=== PATIENT | male | born 1985 | race Caucasian/White ===

== ENCOUNTER 2020-01-25 10:42 | Outpatient (REF) | payer OTHER, SELFPAY | END 2020-01-25 10:43 | disposition home or self-care (01) | LOC: HO.HMGCLDS 10:42 | PROVIDERS: Visit Provider Internal Medicine | DX: Z20.828 Contact with and (suspected) exposure to other viral communicable diseases (principal) | CPT/HCPCS: C9803; U0003 ==

== ENCOUNTER 2020-04-15 06:21 | Outpatient (REF) | payer OTHER, SELFPAY ==
[2020-04-15 12:10] LABS: Alanine Aminotransferase 31 U/L (0-40); Albumin Level 4.6 g/dL (3.5-5.0); Alkaline Phosphatase 85 U/L (39-117); Anion Gap 11 (12-20); Aspartate Amino Transferase 22 U/L (5-37); Bilirubin Total 0.9 mg/dL (0.0-1.0); Blood Urea Nitrogen 16 mg/dL (9-16); Calcium 8.9 mg/dL (8.4-10.2); Carbon Dioxide 32 mmol/L (22-29); Chloride 100 mmol/L (96-108); Cholesterol 177 mg/dL; Estimated Glomerular Filt Rate > 60; Glucose Fasting 96 mg/dL (60-99); HDL Cholesterol 43 mg/dL; LDL Cholesterol Calculated 112 mg/dl; Potassium 3.3 mmol/L (3.3-5.1); Sodium 140 mmol/L (135-145); Total Protein 6.6 g/dL (6.5-8.0); Triglycerides 114 mg/dL
[2020-04-15 12:32] LABS: TSH reflex Free T4 3.47 uIU/mL (0.32-4.0)
== END 2020-04-15 06:22 | disposition home or self-care (01) ==
LOC: HO.HMGCLDS 06:21
PROVIDERS: PCP Nurse Practitioner Family; Visit Provider Nurse Practitioner Family
DX: Z00.00 Encounter for general adult medical examination without abnormal findings (principal)
CPT/HCPCS: 36415; 80053; 80061; 84443

== ENCOUNTER 2020-09-28 10:16 | Emergency (ER) | payer OTHER, SELFPAY ==
[2020-09-28 10:20] VITALS: BP 117/75; PULSE 66; RESP 16; TEMP 36.9; O2SAT 97; BMI 28.5
--- NOTE | 2020-09-28 11:50 | ED.SKABFB ---
HPI - Skin/Abscess/Foreign Bdy General Chief complaint: Wound/Laceration Stated complaint: General Medical Time Seen by Provider: 09/28/20 10:32 Source: patient Mode of arrival: ambulatory Limitations: no limitations History of Present Illness HPI narrative: 35-year-old male presenting to the ED with complaints of a Lump to rectum that started approximately 3 days ago and painful but not bleeding. Denies any trauma to the area, falls, recent rectal intercourse, constipation or straining, abdominal pain or any other symptoms complaints or concerns at this time Related Data Previous Rx's Medication Instructions Recorded betamethasone dipropionate 0.05 % 1 appl TOPICAL DAILY PRN 30 Days 08/01/20 topical cream #45 g famotidine 20 mg tablet 20 mg PO DAILY #20 tab 08/01/20 dicyclomine 10 mg capsule 10 mg PO BID PRN #60 cap 08/08/20 omeprazole 20 mg capsule,delayed 20 mg PO DAILY #30 cap 09/26/20 release acetaminophen [Tylenol Extra 1,000 mg PO QID PRN #14 tab 09/28/20 Strength] docusate sodium [Colace] 100 mg PO BID PRN #20 cap 09/28/20 hydrocortisone acetate [Anusol-HC] 25 mg [place] BEDTIME #12 ea 09/28/20 ibuprofen 800 mg PO Q8H PRN #14 tab 09/28/20 lidocaine 1 appl TOPICAL BID PRN #30 g 09/28/20 sennosides [Senna Laxative] 8.6 mg PO BID PRN #20 tab 09/28/20 Allergies Allergy/AdvReac Type Severity Reaction Status Date / Time No Known Allergies Allergy Verified 09/28/20 10:20 [No Known Allergies*] Review of Systems Review of Systems: Constitutional : No Weight loss, No Fever, No Chills, No Night Sweats, No Fatigue, NoMalaise ENT/Mouth: No ear pain, No sore throat, No Difficulty swallowing Cardiovascular : No Chest Pain, No SOB, No Dyspnea on Exertion, No Orthopnea, NoEdema, No Palpitations Respiratory : No Cough, No Sputum, No Wheezing, No Dyspnea Gastrointestinal : No Nausea, No Vomiting, No Diarrhea, + abdominal Pain, No Hematochezia, No Melena Genitourinary : No testicular pain, No irregular bleeding, No Dysuria, No Urinary Frequency, No Hematuria,No Urinary Incontinence, No Urgency, No Flank Pain : Positive lump to rectum Musculoskeletal : No joint pain, No Myalgias, No Joint Swelling Skin : No Skin Lesions, No rash Neuro : No Weakness, No Numbness, No Paresthesias, No Loss of Consciousness, NoDizziness, No Headache Psych : No Social Issues, Heme/Lymph: No Bruising, No Bleeding,No Lymphadenopathy Endocrine : No Polyuria, No Polydipsia, No Temperature Intolerance PATIENT DENIES ANY THOUGHTS OF STDS Yes all other systems are reviewed and are negative [facility] Past Medical History Attestation statement: The following information was validated with the patient. Surgical History No pertinent past surgical history Family History Family History Father History of heart attack Heavy smoker CVD (cardiovascular disease) Mother Anemia Social History Social History Alcohol intake: current Alcohol intake frequency: holidays/special occasions only Advance Directives: Yes Advance Directives Information Provided: Yes Advance Directives on File: No Physical Exam Vital Signs: Vital Signs: Last Vital Signs Temp 98.5 F 09/28/20 10:20 Pulse 66 09/28/20 10:20 Resp 16 09/28/20 10:20 BP 117/75 09/28/20 10:20 Pulse Ox 97 09/28/20 10:20 Body Mass Index 28.5 vital signs have been reviewed as normal and appeared to be correct. Blood pressure normal. Heart rate normal. Respiration rate normal. Temperature normal. Oxygen saturation normal. Appearance: Alert. Oriented X3. No acute distress. Head: Normal external exam. Normocephalic. Atraumatic. Eyes: PERRLA. EOMI. Conjunctiva and sclera normal. Eyelids normal. ENT: Pharynx normal. Uvula midline. Moist mucous membranes. Neck: Normal inspection. Neck supple. FROM. No adenopathy. No meningeal signs. CVS: Normal heart rate and rhythm. Heart sound normal. Pulses normal throughout. No murmurs/rales/gallops. Respiratory: No respiratory distress. Painless inspiration. Breath sounds normal. No wheezes/rales/rhonchi noted. Chest nontender. No accessory muscle usage noted or decreased air movement noted. Abdomen: Soft and nontender. Bowel sounds normal in all 4 quadrants. No distention noted. No organomegaly noted. No visible injury noted. Back: Full range of motion noted. No rashes/lesion/induration/fluctuance or signs of infection noted. : Positive left external thrombosed hemorrhoid no active bleeding is noted. Not consistent with strangulated hemorrhoids. No signs of abscess noted. Skin: Skin warm and dry. Normal skin color. Normal skin turgor. No rashes/lesions/lacerations noted. Extremities: Extremities exhibit normal range of motion. Extremities nontender. Neuro: Oriented X 3. No motor deficit. No sensory deficit. Reflexes normal. Normal steady gait. No focal neuro deficits noted. Course Course Course Narrative: pt is s/p elliptical I&D of thrombosed hemorrhoid. He tolerated procedure well. No complications were noted. Not consistent with incarcerated/strangulated hemorrhoid. Will DC home with topical steroids stool softeners and instructions for high fiber diet and to follow up with with general surgery for further evaluation treatment to return if any new or worsening symptoms. Patient understands agrees with this plan. Procedures Abscess I/D Site: other (Thrombosed hemorrhoid) Side (if applicable): left Local Anesthetic: lidocaine 1% Amount of anesthesia used (mL): 2 Technique: incised with blade (Elliptical cut) Sent for culture/gram staining?: No Irrigation: Yes Packing used?: none Complications: other (No complications) MDM - Skin/Abscess/Foreign Bdy Medical Records Attestation: I reviewed the patient's medical records. Discharge Plan Discharge Clinical Impression: External hemorrhoid, thrombosed Patient Disposition: Home, Self-Care Instructions: Hemorrhoids (ED), Thrombosed Hemorrhoid (ED), Hemorrhoidectomy (DC) Prescriptions: New sennosides [Senna Laxative] 8.6 mg tablet 8.6 mg PO BID PRN (Reason: constipation/hemorrhoids) Qty: 20 RF: 0 docusate sodium [Colace] 100 mg capsule 100 mg PO BID PRN (Reason: Constipation) Qty: 20 RF: 0 hydrocortisone acetate [Anusol-HC] 25 mg suppository 25 mg [place] BEDTIME Qty: 12 RF: 0 lidocaine 5 % ointment 1 appl topical BID PRN (Reason: pain) Qty: 30 RF: 0 ibuprofen 800 mg tablet 800 mg PO Q8H PRN (Reason: pain) Qty: 14 RF: 0 acetaminophen [Tylenol Extra Strength] 500 mg tablet 1,000 mg PO QID PRN (Reason: fever or pain) Qty: 14 RF: 0 No Action betamethasone dipropionate 0.05 % cream 1 appl topical DAILY PRN (Reason: skin irritation) 30 Days Qty: 45 RF: 0 famotidine 20 mg tablet 20 mg PO DAILY Qty: 20 RF: 0 dicyclomine 10 mg capsule 10 mg PO BID PRN (Reason: for muscle spasm) Qty: 60 RF: 2 omeprazole 20 mg capsule,delayed release(DR/EC) 20 mg PO DAILY Qty: 30 RF: 1 Referrals: Julio Barajas MD [Physician] - 2 days (Hemorrhoids) Stand Alone Forms: Work/School Release Print Language: Botswanan
[2020-09-28] MEDS: Lidocaine HCl 1 % MPF 5 ML VIAL SUBCUT (12:03)
== END 2020-09-28 12:27 | disposition home or self-care (01) ==
PROVIDERS: Emergency Provider Emergency Medicine; PCP Nurse Practitioner Family
DX: K64.5 Perianal venous thrombosis (principal)
CPT/HCPCS: 46083; 99284

== ENCOUNTER → 2020-10-03 14:54 | Outpatient (BNVA) | payer OTHER, SELFPAY | PROVIDERS: PCP Nurse Practitioner Family; Referring Provider Nurse Practitioner Family; Visit Provider Surgery | DX: K64.5 Perianal venous thrombosis (principal) | CPT/HCPCS: 99202 ==

== ENCOUNTER 2020-11-25 09:59 | Outpatient (REF) | payer OTHER, SELFPAY | END 2020-11-25 10:00 | disposition home or self-care (01) | LOC: HO.HMGCLDS 09:59 | PROVIDERS: PCP Nurse Practitioner Family; Visit Provider Internal Medicine | DX: Z20.822 Contact with and (suspected) exposure to COVID-19 (principal) | CPT/HCPCS: C9803; U0003; U0005 ==

== ENCOUNTER 2020-12-16 06:55 | Outpatient (REF) | payer OTHER, SELFPAY | END 2020-12-16 06:56 | disposition home or self-care (01) | LOC: HO.HMGCLDS 06:55 | PROVIDERS: PCP Nurse Practitioner Family; Visit Provider Internal Medicine | DX: Z20.822 Contact with and (suspected) exposure to COVID-19 (principal) | CPT/HCPCS: C9803; U0003; U0005 ==

== ENCOUNTER 2021-01-31 09:41 | Outpatient (REF) | payer OTHER, SELFPAY ==
--- NOTE | ~2021-01-31 | XR_ITS ---
EXAMINATION: XR SINUSES CLINICAL INFORMATION: Acute sinusitis COMPARISON: None TECHNIQUE: 4 views of the paranasal sinuses FINDINGS: Paranasal sinuses appear clear without air-fluid levels. No fractures are identified. No radiodense foreign bodies. XR/XR sinus min 3V IMPRESSION: Unremarkable examination.
== END 2021-01-31 09:42 | disposition home or self-care (01) ==
LOC: HO.HMGCX 09:41
PROVIDERS: PCP Nurse Practitioner Family; Visit Provider Physician Assistant Medical
DX: J01.90 Acute sinusitis, unspecified (principal)
CPT/HCPCS: 70220

== ENCOUNTER 2021-02-25 06:54 | Outpatient (REF) | payer OTHER, SELFPAY | END 2021-02-25 06:55 | disposition home or self-care (01) | LOC: HO.HMGCLDS 06:54 | PROVIDERS: Visit Provider Internal Medicine | DX: Z20.822 Contact with and (suspected) exposure to COVID-19 (principal) | CPT/HCPCS: C9803; U0003; U0005 ==

== ENCOUNTER 2021-03-26 09:29 | Outpatient (REF) | payer OTHER, SELFPAY ==
--- NOTE | ~2021-03-26 | XR_ITS ---
EXAMINATION: XR RIBS, RIGHT CLINICAL INFORMATION: Contusion. COMPARISON: None TECHNIQUE: 3 views of the right ribs were obtained. Chest x-ray one view FINDINGS: Lungs are clear. No consolidation, pneumothorax, or pleural effusion. The cardiomediastinal silhouette and pulmonary vasculature are normal. Osseous structures are unremarkable. Ribs are intact. No fractures are identified. XR/XR ribs RT min 3V w CXR1V IMPRESSION: Unremarkable chest examination. There is no visible right rib fracture or bony abnormality.
== END 2021-03-26 09:30 | disposition home or self-care (01) ==
LOC: HO.HMGCX 09:29
PROVIDERS: PCP Nurse Practitioner Family; Visit Provider Internal Medicine
DX: S20.211D Contusion of right front wall of thorax, subsequent encounter (principal)
CPT/HCPCS: 71101

== ENCOUNTER 2021-03-31 08:54 | Outpatient (REF) | payer OTHER, SELFPAY ==
--- NOTE | ~2021-03-31 | CT_ITS ---
EXAMINATION: CT ABDOMEN AND PELVIS WITHOUT CONTRAST CLINICAL INFORMATION: Contusion of the abdominal wall. COMPARISON: CT abdomen and pelvis 06/09/2018. TECHNIQUE: Multidetector volumetric imaging was performed from the superior aspect of the liver through the pubic symphysis. Sagittal and coronal reformatted images were obtained on the technologist's workstation. This CT examination was performed using dose optimization techniques as appropriate, variously including the following: *Automated exposure control *Adjustment of mA and/or kV according to patient size (this includes techniques or standardized protocols for targeted exams where dose is matched to indication/reason for exam; i.e. extremities or head) *Use of iterative reconstruction technique DLP: 330 mGy-cm FINDINGS: LUNG BASES: The visualized lung bases are unremarkable. LIVER, GALLBLADDER, AND BILIARY TREE: The liver is normal in size, shape, and attenuation. No focal hepatic lesion or biliary ductal dilatation is present. The gallbladder is unremarkable with no evidence of radiopaque gallstones, gallbladder wall thickening, or obvious pericholecystic inflammatory changes. PANCREAS: Unremarkable. SPLEEN: Unremarkable. ADRENAL GLANDS: Unremarkable. KIDNEYS AND URETERS: There is 3 mm and 2 mm radiopaque nonobstructing calculi upper pole right kidney. No additional calculi seen in either kidneys. There is no caliectasis or hydronephrosis. Both kidneys are normal size and contour. No perinephric stranding seen. BLADDER: Unremarkable. GASTROINTESTINAL TRACT: There is moderate stool seen in the right colon. The small bowel loops are normal caliber. The stomach is nondistended. No free air or free fluid seen. ABDOMINAL WALL: No significant hernia is appreciated. LYMPH NODES: There is a 1.9 x 1.3 cm lymph node in the right mesentery VASCULAR: Unremarkable. PELVIC VISCERA: Unremarkable. OSSEOUS STRUCTURES: Unremarkable. CT/CT abdomen pelvis wo con IMPRESSION: No acute intra-abdominal process seen. Nonobstructive radiopaque calculi upper pole right kidney. Mild constipation Fleischner guidelines were followed.
[2021-03-31 11:21] LABS: Hematocrit 47.2 % (42.0-52.0); Hemoglobin 16.1 g/dl (14.0-18.0); Mean Corpuscular HGB Conc 34.1 g/dl (31.0-36.0); Mean Corpuscular Hemoglobin 29.8 pg (27.0-33.0); Mean Corpuscular Volume 87.4 fL (80.0-98.0); Mean Platelet Volume 9.4 fL (9.4-12.4); Platelet Count 131 X10*3/uL (160-400); Red Cell Distribution Width 12.5 % (11.0-16.0)
[2021-03-31 11:47] LABS: Alanine Aminotransferase 20 U/L (0-40); Albumin Level 4.4 g/dL (3.5-5.0); Alkaline Phosphatase 70 U/L (39-117); Anion Gap 12 (12-20); Aspartate Amino Transferase 16 U/L (5-37); Bilirubin Direct 0.3 mg/dL (0.0-0.5); Bilirubin Total 0.6 mg/dL (0.0-1.0); Blood Urea Nitrogen 16 mg/dL (9-16); Calcium 9.6 mg/dL (8.4-10.2); Carbon Dioxide 32 mmol/L (22-29); Chloride 106 mmol/L (96-108); Estimated Glomerular Filt Rate > 60; Glucose Random 98 mg/dL (60-115); Potassium 3.5 mmol/L (3.3-5.1); Sodium 146 mmol/L (135-145); Total Protein 6.8 g/dL (6.5-8.0)
[2021-03-31 11:58] LABS: Erythrocyte Sedimentation Rate 2 MM/HR (0-15)
== END 2021-03-31 08:55 | disposition home or self-care (01) ==
LOC: HO.HMGCLDS 08:54
PROVIDERS: PCP Nurse Practitioner Family; Visit Provider Internal Medicine
DX: S30.1XXA Contusion of abdominal wall, initial encounter (principal)
CPT/HCPCS: 36415; 74176; 80048; 80076; 85027; 85652

== ENCOUNTER 2022-09-10 11:51 | Outpatient (REF) | payer OTHER, SELFPAY ==
[2022-09-10 13:53] LABS: MANUAL DIFF FLAG NO
[2022-09-10 13:57] LABS: Appearance Urine Clear; Color Urine Yellow; Glucose Urine UA Negative (Negative); Leukocyte Esterase Urine Negative (Negative); Nitrite Urine Negative (Negative); Specific Gravity - Urine <= 1.005 (1.005-1.025); Urine Blood Negative (Negative); Urine Ketones Negative (Negative); Urine Protein Negative (Neg-Trace)
[2022-09-10 14:08] LABS: Basophils Percent Auto 0.7 % (0-2); Eosinophils Absolute Auto 0.1 X10*3/uL (0.0-0.4); Eosinophils Percent Auto 1.2 % (0-4); Hematocrit 45.3 % (42.0-52.0); Hemoglobin 15.5 g/dl (14.0-18.0); Imm Gran Abs Auto 0.19 X10*3/uL (0.00-0.03); Imm Gran Pct Auto 3.3 % (0.0-0.4); Lymphocytes Absolute Auto 2.3 X10*3/uL (1.2-4.9); Mean Corpuscular HGB Conc 34.2 g/dl (31.0-36.0); Mean Corpuscular Hemoglobin 29.1 pg (27.0-33.0); Mean Platelet Volume 9.6 fL (9.4-12.4); Monocytes Absolute Auto 0.5 X10*3/uL (0.1-1.2); Monocytes Percent Auto 8.7 % (2-11); Neutrophils Absolute Auto 2.7 x10*3/uL (2.0-8.3); Neutrophils Percent Auto 46.1 % (45-73); Platelet Count 164 X10*3/uL (160-400); Red Blood Count 5.33 X10*6/uL (4.60-5.80); White Blood Count 5.8 X10*3/uL (4.8-10.8)
[2022-09-10 14:33] LABS: Alanine Aminotransferase 19 U/L (0-40); Albumin Level 4.3 g/dL (3.5-5.0); Alkaline Phosphatase 60 U/L (39-117); Anion Gap 12 (12-20); Aspartate Amino Transferase 17 U/L (5-37); Blood Urea Nitrogen 15 mg/dL (9-16); Calcium 9.6 mg/dL (8.4-10.2); Carbon Dioxide 31 mmol/L (22-29); Chloride 101 mmol/L (96-108); Cholesterol 166 mg/dL; Estimated Glomerular Filt Rate > 60; Glucose Fasting 94 mg/dL (60-99); HDL Cholesterol 45 mg/dL; LDL Cholesterol Calculated 105 mg/dl; Potassium 3.8 mmol/L (3.3-5.1); Sodium 140 mmol/L (135-145); Total Protein 6.7 g/dL (6.5-8.0); Triglycerides 83 mg/dL
[2022-09-10 14:50] LABS: TSH reflex Free T4 0.93 uIU/mL (0.32-4.0)
[2022-09-10 17:27] LABS: CT PCR NOT DETECTED (Not Detect.); NG PCR NOT DETECTED (Not Detect.)
[2022-09-11 03:33] LABS: Syphilis Screen Nonreactive (Nonreactive)
[2022-09-11 03:47] LABS: HBc Num1 0.13 S/CO (0.00-0.79); HBsAGNum1 0.37 S/CO (0.00-0.99); HIV AB/AG Nonreactive (Nonreactive); HIV Num 1 0.09 S/CO (0.00-0.99); Hepatitis B Core Antibody Nonreactive (Nonreactive); Hepatitis B Surface Antigen Negative (Negative); ~Hepatitis A Antibody IgM Nonreactive (Nonreactive); ~Hepatitis B Surface Antibody REACTIVE (Nonreactive); ~Hepatitis C Antibody Nonreactive (Nonreactive)
== END 2022-09-10 11:52 | disposition home or self-care (01) ==
LOC: HO.HMGCLDS 11:51
PROVIDERS: PCP Nurse Practitioner Family; Visit Provider Nurse Practitioner Family
DX: Z00.00 Encounter for general adult medical examination without abnormal findings (principal); Z11.3 Encounter for screening for infections with a predominantly sexual mode of transmission; Z11.4 Encounter for screening for human immunodeficiency virus [HIV]
CPT/HCPCS: 0353U; 80053; 80061; 81003; 84443; 85025; 86704; 86706; 86709; 86780; 86803; 87340; 87389

== ENCOUNTER 2023-06-24 11:28 | Outpatient (AMB) | payer OTHER, SELFPAY ==
[2023-06-24 11:31] VITALS: BP 142/80; PULSE 67; TEMP 36.3; O2SAT 99; BMI 27.3
--- NOTE | 2023-06-24 11:31 | MHC.OFFWIV ---
Intake Vital Signs 06/24/23 11:31 Height 5 ft 11 in Weight 196 lb BMI 27.3 BP 142/80 H Blood Pressure Location Lt brachial Position Sitting Pulse 67 Pulse Source Pulse Oximeter Temp 97.4 F Temp Source Temporal Artery Scan Pulse Oximetry (%) 99 Oxygen Delivery Method Room Air Intake Visit Reasons: EP RT side rib/chest/back pain (lobby) Intake Note: pt is here today for rt side rib chest and back pain started wednesday Patient Tobacco Use Status: Never used Tobacco Allergies No Known Allergies [No Known Allergies*] Allergy (Verified 06/24/23 11:36) Do you need a note to return to daycare/school/sports/work: No HPI HPI Comments History of Present Illness Details 37 y/o male patient who presents to walk in clinic with c/o right sided chest wall pain, radiating to the back. Pt was working in his house yesterday, when fell and landed on hard surface. Reports muscle tighness, but denies CP, SOB or Wheezing. PFSH Surgical History History of ear surgery Family History Father History of heart attack Heavy smoker CVD (cardiovascular disease) Mother Anemia Social History Housing: Other (mobile Home ) Alcohol intake: current Alcohol intake frequency: holidays/special occasions only Patient Tobacco Use Status: Never used Tobacco e-Cigarette/Vaping Use: Never Used Second Hand Smoke Exposure: No service: No Current occupational status: employed Current occupation: [employer] Current occupational exposures/hazards: Yes Cognitive needs: No Hearing needs: No Vision needs: No Review of Systems Const All systems reviewed & are unremarkable except as noted in HPI and below Physical Exam Vital Signs: Last Vital Signs Temp 97.4 F 06/24/23 11:31 Pulse 67 06/24/23 11:31 BP 142/80 H 06/24/23 11:31 Pulse Ox 99 06/24/23 11:31 Oxygen Delivery Method Room Air 06/24/23 11:31 BMI result Body Mass Index 27.3 Const General: no acute distress; No comfortable Orientation/consciousness: patient oriented x3 Chest Chest palpation & inspection: normal inspection of the chest, no crepitus, no masses and tenderness rib (right side) Resp Effort & Inspection: normal respiratory effort and able to speak in complete sentences Auscultation: clear to auscultation bilaterally, no crackles, no rales, no rhonchi and no wheezes Cardio Rate: regular rate Neuro General: patient oriented x3 Assessment & Plan Assessment & Plan (1) Contusion, chest wall: Code(s): S20.219A - Contusion of unspecified front wall of thorax, initial encounter Qualifiers: Encounter type: initial encounter Laterality: right Qualified Code(s): S20.211A - Contusion of right front wall of thorax, initial encounter Plan: -Xray chest - Take medications as directed Orders: Orders XR chest 2V Today S20.219A - Contusion of unspecified front wall of thorax, initial encounter Medications: New lidocaine 4% (AsperFlex (lidocaine)) 1 patch topical DAILY PRN 30 ea 0RF pain S20.211A - Contusion of right front wall of thorax, initial encounter metaxalone 800 mg PO TID 20 tabs 0RF S20.211A - Contusion of right front wall of thorax, initial encounter ibuprofen 600 mg PO Q6H PRN 60 tabs 0RF pain S20.211A - Contusion of right front wall of thorax, initial encounter Coding Level of Care Code Est Pt Level 3 (07945) Diagnoses Contusion of right chest wall, initial encounter S20.211A Encounter type: initial encounter Laterality: right Time Spent (min) 15
== END 2023-06-24 13:56 | disposition home or self-care (01) ==
PROVIDERS: PCP Nurse Practitioner Family; Visit Provider Nurse Practitioner Family
DX: S20.211A Contusion of right front wall of thorax, initial encounter (principal)
CPT/HCPCS: 99213

== ENCOUNTER 2023-06-24 12:09 | Outpatient (REF) | payer OTHER, SELFPAY ==
--- NOTE | ~2023-06-24 | XR_ITS ---
EXAMINATION: XR CHEST CLINICAL INFORMATION: Right-sided chest pain after fall. COMPARISON: 03/09/2018 TECHNIQUE: 2 views of the chest were obtained. FINDINGS: The lungs are well expanded. No focal consolidation. No pleural effusion. Cardiac silhouette is within normal limits. XR/XR chest 2V IMPRESSION: No acute abnormality.
== END 2023-06-24 12:10 | disposition home or self-care (01) ==
LOC: HO.HMGCX 12:09
PROVIDERS: PCP Nurse Practitioner Family; Visit Provider Nurse Practitioner Family
DX: S20.219A Contusion of unspecified front wall of thorax, initial encounter (principal)
CPT/HCPCS: 71046

== ENCOUNTER 2023-12-29 14:49 | Outpatient (AMB) | payer OTHER, SELFPAY ==
[2023-12-29 14:53] VITALS: BP 142/80; PULSE 73; O2SAT 98; BMI 25.5
--- NOTE | 2023-12-29 14:53 | A.OFFPC_ITS ---
Vital Signs 12/29/23 14:53 12/29/23 15:31 Height 5 ft 11 in Weight 183 lb BMI 25.5 BP 142/80 H 132/80 Blood Pressure Location Rt brachial Rt brachial Position Sitting Sitting Pulse 73 Pulse Source Pulse Oximeter Pulse Oximetry (%) 98 Oxygen Delivery Method Room Air Intake Visit Reasons: Annual PE Intake Note: pt is here for annual exam Desktop Administrator Required: No Accompanied by: Self / Same As Patient Allergies No Known Allergies [No Known Allergies*] Allergy (Verified 12/29/23 15:59) Medication List - Last Reconciled 12/29/23 by KISHOR Montalvo dicyclomine 10 mg PO BID PRN 90 days omeprazole 20 mg PO DAILY Tobacco use date assessed: 12/29/23 Dental Screening Dental Screen Date: 12/29/23 Did you have a dental visit in the last 12 months?: Yes Did you have a dental problem in the last 6 months where you did not have access to dental care?: No Was dental information given to patient?: Patient has dentist HPI Annual PE HPI Details Pt is here for a PE. Will order labs. Pt c/o constipation. He has tried miralax which did not help. Recommended increased fiber and water intake. Pt reports that his maternal grandfather at a young age from pancreatic cancer. Will order CA 19-9 and MRI. [facility] Surgical History History of ear surgery Family History Father History of heart attack Heavy smoker CVD (cardiovascular disease) Mother Anemia Social History Housing: Other (mobile Home ) Alcohol intake: current Alcohol intake frequency: holidays/special occasions only Patient Tobacco Use Status: Never used Tobacco e-Cigarette/Vaping Use: Never Used Second Hand Smoke Exposure: No service: No Current occupational status: employed Current occupation: [employer] Current occupational exposures/hazards: Yes Cognitive needs: No Hearing needs: No Vision needs: No Questionnaire PHQ-9 Over the last 2 weeks, how often have you been bothered by any of the following problems? 1. Little interest or pleasure in doing things: not at all 2. Feeling down, depressed, or hopeless: not at all 3. Trouble falling or staying asleep, or sleeping too much: not at all 4. Feeling tired or having little energy: several days 5. Poor appetite or overeating: not at all 6. Feeling bad about yourself - or that you are a failure or have let yourself or your family down: not at all 7. Trouble concentrating on things, such as reading the newspaper or watching television: several days 8. Moving or speaking so slowly that other people could have noticed. Or the opposite - being so fidgety or restless that you have been moving around a lot more than usual: not at all 9. Thoughts that you would be better off or of hurting yourself in some way: not at all Total score: 2 Depression Screening Interpretation: Negative Depression Screening Done: Yes 20204 - PHQ-9 Billing: Yes Source: Developed by Drs. Flako Francois, Kirsten Ramirez, Jay Kelly and colleagues, with an educational lboito from [employer]. Thrive Questionnaire Date Thrive assessed: 12/29/23 I am a: Patient What is your living situation today?: I have a steady place to live Within the past 12 months, did the food you bought not last and you didn't have the money to get more?: Never true Within the past 12 months, did you worry whether your food would run out before you got money to buy more?: Never true Do you have trouble paying for medicines?: No Do you have trouble getting transportation to medical appointments?: No Do you have trouble paying your heating and electricity bill?: No Do you have trouble taking care of your child, family member or friend?: No Do you have trouble with day-to-day activities such as bathing, preparing meals, shopping, managing finances, etc.?: No Are you interested in more education?: No Please select the resources that you would like help with: None Currently or been in a relationship where the following occur: No concerns reported THRIVE Score: 0 AUDIT C Alcohol Use Questionnaire (AUDIT-C) 1. How often do you have a drink containing alcohol?: Never 3. How often do you have six or more drinks on one occasion?: Never Total Score: 0 Score Reviewed/Action Taken: Yes ARPAN-7 AMB Questionnaire ARPAN-7 Date ARPAN - 7 assessed: 12/29/23 Feeling nervous, anxious, or on edge: 1 = Several days Not being able to stop or control worryin = Not at all Worrying too much about different things: 0 = Not at all Trouble relaxin = Several days Being so restless that it is hard to sit still: 1 = Several days Becoming easily annoyed or irritable: 1 = Several days Feeling afraid as if something awful might happen: 0 = Not at all Total RAPAN-7 score (0-4 normal; 5-9 mild; 10-14 moderate; 15-21 severe): 4 Source: Developed by Drs. Flako Francois, Kirsten Ramirez, Jay Kelly and colleagues, with an educational lobito from [employer]. ARPAN-7 Assessment Billing ARPAN-7 Assessment Tool: ARPAN-7 Assessment 84267 Review of Systems Const Denies chills and Denies fever(s) Eyes Denies blurry vision ENT Denies vertigo, Denies dizziness and Denies sore throat Card Denies chest pain at rest, Denies chest pain with activity, Denies diaphoresis, Denies dyspnea and Denies dyspnea on exertion Resp Denies cough, Denies dyspnea, Denies dyspnea on exertion and Denies wheezing GI Denies abdominal pain, Denies melena, Denies hematochezia, Reports constipation, Denies diarrhea and Denies loose stools Denies hematuria Musc Denies numbness and Denies tingling Skin/Breast Denies lesions Neuro Denies vertigo, Denies dizziness, Denies numbness and Denies tingling Psych Denies anxiety, Denies depression, Denies homicidal ideation, Denies suicidal ideation and Denies other (substance abuse) Aller/Immun Denies wheezing Physical exam (Primary Care) Vital Signs: Last Vital Signs Pulse 73 12/29/23 14:53 BP 142/80 H 12/29/23 14:53 Pulse Ox 98 12/29/23 14:53 Oxygen Delivery Method Room Air 12/29/23 14:53 BMI result Body Mass Index 25.5 Tobacco/Smoking Status: Tobacco use Status Tobacco use date assessed 12/29/23 12/29/23 14:54 Patient Tobacco Use Status Never used Tobacco 12/29/23 14:54 e-Cigarette/Vaping Use Never Used 12/29/23 14:54 PHQ-9: PHQ-9 Score PHQ-9: Total score 2 12/29/23 15:10 Depression Screening Interpretation: Negative Thrive Assessment: Date of Thrive Assessment Date Thrive assessed 12/29/23 12/29/23 14:54 Currently or been in a relationship where the following occur: No concerns reported Const General: cooperative Nutritional Appearance: well nourished Orientation/consciousness: patient oriented x3 HENMT Other: cerumen noted bilat Head: Yes normal to inspection, Yes normocephalic and Yes atraumatic Eyes General: appearance normal, both eyes and all related structures Alignment and Position: alignment normal and position normal Neck Neck: Yes normal visual inspection, Yes no lymphadenopathy and Yes supple Resp Effort & Inspection: normal respiratory effort Auscultation: clear to auscultation bilaterally Cardio Rate: regular rate Rhythm: regular rhythm Heart sounds: S1 normal heart sound present, S2 normal heart sound present and no murmurs GI Palpation (GI): Soft to palpation and nontender Auscultation: normal bowel sounds Male General Exam: Yes normal external exam Penis: normal penis Scrotum: scrotum normal, testes descended bilaterally and no inguinal hernias Testes: no testicular mass Skin Rashes: no rashes Neuro General: patient oriented x3, moves all extremities, no focal motor deficits and deep tendon reflexes 2+ bilaterally Romberg Test: Negative Psych Appearance: grossly normal Mental Status: mental status grossly normal Speech and movement: Normal speech and movement present Affect: normal affect Attitude: cooperative Thought process: Normal thought process present Thought content: Normal thought content present Insight: Good insight present (Psych) Judgement: Good judgement present (Psych) Coding Level of Care Code Est Pt Prev Care 40-64y(13956) Diagnoses Physical exam Z00.00 Family history of pancreatic cancer Z80.0 Additional Codes ARPAN-7 Assessment Billing - ARPAN-7 Assessment Tool: ARPAN-7 Assessment [id number] ([id number]) Assessment & Plan Assessment & Plan (1) Physical exam: Code(s): Z00.00 - Encounter for general adult medical examination without abnormal findings Category: Medical Plan: Labs ordered (2) Family history of pancreatic cancer: Code(s): Z80.0 - Family history of malignant neoplasm of digestive organs Category: Medical Plan The patient agreed to the use of a medical lab specialist for this encounter. Scribed for ARELY Valente-DEANA by Justyna Valladares, medical lab specialist, on 12/29/2023 at 15:10 EST. Orders: Orders Comprehensive [place]. Panel Fast Today Z00.00 - Encounter for general adult medical examination without abnormal findings TSH reflex Free T4 Today Z00.00 - Encounter for general adult medical examination without abnormal findings UA CC w/rflx Micro + Cult Today Z00.00 - Encounter for general adult medical examination without abnormal findings Complete Blood Count Auto Diff Today Z00.00 - Encounter for general adult medical examination without abnormal findings Lipid Panel Today Z00.00 - Encounter for general adult medical examination without abnormal findings Carbohydrate Antigen 19-9 Today Z80.0 - Family history of malignant neoplasm of digestive organs MR abdomen wo con Today Z80.0 - Family history of malignant neoplasm of digestive organs
[2023-12-29 15:31] VITALS: BP 132/80
== END 2023-12-29 15:38 | disposition home or self-care (01) ==
PROVIDERS: PCP Nurse Practitioner Family; Visit Provider Nurse Practitioner Family
DX: Z00.00 Encounter for general adult medical examination without abnormal findings (principal); Z80.0 Family history of malignant neoplasm of digestive organs

== ENCOUNTER → 2023-12-29 14:49 | Outpatient (BNVA) | payer OTHER, SELFPAY | PROVIDERS: PCP Nurse Practitioner Family; Visit Provider Nurse Practitioner Family | DX: Z00.00 Encounter for general adult medical examination without abnormal findings (principal); Z80.0 Family history of malignant neoplasm of digestive organs | CPT/HCPCS: 96127; 99396 ==

== ENCOUNTER 2023-12-30 07:47 | Outpatient (REF) | payer OTHER, SELFPAY ==
[2023-12-30 10:13] LABS: MANUAL DIFF FLAG NO
[2023-12-30 10:21] LABS: Basophils Percent Auto 0.4 % (0-2); Eosinophils Absolute Auto 0.1 X10*3/uL (0.0-0.4); Eosinophils Percent Auto 1.6 % (0-4); Hematocrit 43.2 % (42.0-52.0); Hemoglobin 14.8 g/dl (14.0-18.0); Imm Gran Abs Auto 0.02 X10*3/uL (0.00-0.03); Imm Gran Pct Auto 0.4 % (0.0-0.4); Lymphocytes Absolute Auto 1.3 X10*3/uL (1.2-4.9); Lymphocytes Percent Auto 29.3 % (20-40); Mean Corpuscular HGB Conc 34.3 g/dl (31.0-36.0); Mean Corpuscular Hemoglobin 29.2 pg (27.0-33.0); Mean Corpuscular Volume 85.2 fL (80.0-98.0); Monocytes Absolute Auto 0.4 X10*3/uL (0.1-1.2); Monocytes Percent Auto 7.8 % (2-11); Neutrophils Absolute Auto 2.7 x10*3/uL (2.0-8.3); Neutrophils Percent Auto 60.5 % (45-73); Platelet Count 121 X10*3/uL (160-400); Red Blood Count 5.07 X10*6/uL (4.60-5.80); Red Cell Distribution Width 12.6 % (11.0-16.0); White Blood Count 4.5 X10*3/uL (4.8-10.8)
[2023-12-30 10:23] LABS: Appearance Urine Cloudy; Color Urine Yellow; Glucose Urine UA Negative (Negative); Leukocyte Esterase Urine Negative (Negative); Nitrite Urine Negative (Negative); Urine Blood Negative (Negative); Urine Ketones Negative (Negative); Urine Protein Negative (Neg-Trace)
[2023-12-30 11:04] LABS: Alanine Aminotransferase 19 U/L (0-40); Albumin Level 4.4 g/dL (3.5-5.0); Alkaline Phosphatase 72 U/L (39-117); Anion Gap 11 (12-20); Aspartate Amino Transferase 20 U/L (5-37); Bilirubin Total 0.8 mg/dL (0.0-1.0); Blood Urea Nitrogen 12 mg/dL (9-16); Calcium 9.6 mg/dL (8.4-10.2); Carbon Dioxide 30 mmol/L (22-29); Chloride 105 mmol/L (96-108); Cholesterol 129 mg/dL (<200); Estimated Glomerular Filt Rate > 60; Glucose Fasting 96 mg/dL (60-99); HDL Cholesterol 46 mg/dL (>40); LDL Cholesterol Calculated 74 mg/dL (<100); Potassium 3.6 mmol/L (3.3-5.1); Sodium 142 mmol/L (135-145); Total Protein 6.3 g/dL (6.5-8.0); Triglycerides 48 mg/dL (<150)
[2023-12-30 11:26] LABS: TSH reflex Free T4 1.21 uIU/mL (0.32-4.0)
[2023-12-31 10:34] LABS: Carbohydrate Antigen 19-9 7 U/mL (<34)
== END 2023-12-30 07:48 | disposition home or self-care (01) ==
LOC: HO.HMGCLDS 07:47
PROVIDERS: PCP Nurse Practitioner Family; Visit Provider Nurse Practitioner Family
DX: Z00.00 Encounter for general adult medical examination without abnormal findings (principal); Z80.0 Family history of malignant neoplasm of digestive organs
CPT/HCPCS: 36415; 80053; 80061; 81003; 84443; 85025; 86301

== ENCOUNTER 2024-01-05 09:54 | Outpatient (AMB) | payer OTHER, SELFPAY ==
--- NOTE | 2024-01-05 10:02 | MHC.OFFWIV ---
Intake Vital Signs 01/05/24 10:03 Weight 182 lb BP 110/60 Blood Pressure Location Rt brachial Position Sitting Pulse 62 Pulse Source Pulse Oximeter Pulse Oximetry (%) 98 Oxygen Delivery Method Room Air Intake Visit Reasons: EP Ear flush, vertigo Intake Note: Patient here for dizziness that started this morning. He states he was recently in office with PCP and was advised that his ears needed to be cleaned and was supposed to have it done but was not for some reason Patient Tobacco Use Status: Never used Tobacco Allergies No Known Allergies [No Known Allergies*] Allergy (Verified 01/05/24 10:04) Do you need a note to return to daycare/school/sports/work: No HPI EP Ear flush, vertigo HPI Details This note is constructed using voice recognition software. While every effort has been made to ensure accuracy, quality assurance qa lab technician errors may have been included. The patient is a 38 year old male who presents to the clinic today with dizziness since this morning. He reports that he saw his PCP last week and was advised that he had a large amount of cerumen in his right canal, and went home to attempt [id number] treatment, which he initiated the next day. He feels that the right ear has felt slightly different for about a few days before the last visit, but was not particularly painful. He denies fever, chills, cough, shortness of breath, or other URI symptoms. He reports that when he woke this morning, he felt dizzy, primarily when he was changing positions from sitting to standing, or from lying to sitting. The symptoms resolved on their own, he then developed some light nausea which also had resolved. He was able to tolerate breakfast this morning. He denies any trauma to his head, neck stiffness, fever, chills. [facility] Surgical History History of ear surgery Family History Father History of heart attack Heavy smoker CVD (cardiovascular disease) Mother Anemia Social History Housing: Other Alcohol intake: current Alcohol intake frequency: holidays/special occasions only Patient Tobacco Use Status: Never used Tobacco e-Cigarette/Vaping Use: Never Used Second Hand Smoke Exposure: No service: No Current occupational status: employed Current occupation: [employer] Current occupational exposures/hazards: Yes Cognitive needs: No Hearing needs: No Vision needs: No Review of Systems Const All systems reviewed & are unremarkable except as noted in HPI and below Physical Exam Vital Signs: Last Vital Signs Pulse 62 01/05/24 10:03 BP 110/60 01/05/24 10:03 Pulse Ox 98 01/05/24 10:03 Oxygen Delivery Method Room Air 01/05/24 10:03 Const General: cooperative, healthy appearing, comfortable and no acute distress Orientation/consciousness: patient oriented x3 HEENT Head: Yes normal to inspection, Yes No palpable skull fracture present and Yes normocephalic Ears: hearing grossly normal bilaterally, external ears normal, EAC's normal, mastoids normal (no TTP) bilaterally and TM abnormal bulging, erythematous and with fluid behind the TM on the right General nose exam: Normal external nose present Face and sinus: Yes normal facial exam Mouth: Normal oral and palatal mucosa present Teeth and gingiva: dentition normal Throat: Yes posterior oropharynx normal Eyes Other: Horizontal nystagmus present General: appearance normal, both eyes and all related structures Neck Neck: Yes normal visual inspection, Yes full ROM, Yes no lymphadenopathy, Yes no meningeal signs, Yes trachea midline and Yes supple Resp Effort & Inspection: normal respiratory effort and able to speak in complete sentences Skin General skin exam: no rashes or lesions noted Neuro General: patient oriented x3 and no meningeal signs Assessment & Plan Assessment & Plan (1) Otitis media: Code(s): H66.90 - Otitis media, unspecified, unspecified ear Qualifiers: Otitis media type: suppurative Chronicity: acute Laterality: right Recurrence: non-recurrent Spontaneous tympanic membrane rupture: without spontaneous rupture Qualified Code(s): H66.001 - Acute suppurative otitis media without spontaneous rupture of ear drum, right ear Plan: Benign vertigo likely contributed to by otitis media. Advised patient to avoid driving while actively dizzy. Antibiotics sent to requested pharmacy. Advised NSAIDs for pain. Advised follow up with worsening or failure to resolve. Plan See above for full details and plan. Medications: New amoxicillin-pot clavulanate 875-125 mg 1 tab PO BID 14 tabs 0RF 7 days Coding Level of Care Code Est Pt Level 3 (87030) Diagnoses Non-recurrent acute suppurative otitis media of right ear without spontaneous rupture of tympanic membrane H66.001 Otitis media type: suppurative Chronicity: acute Laterality: right Recurrence: non-recurrent Spontaneous tympanic membrane rupture: without spontaneous rupture
[2024-01-05 10:03] VITALS: BP 110/60; PULSE 62; O2SAT 98
== END 2024-01-05 10:17 | disposition home or self-care (01) ==
PROVIDERS: PCP Nurse Practitioner Family; Visit Provider Registered Nurse
DX: H66.001 Acute suppurative otitis media without spontaneous rupture of ear drum, right ear (principal)

== ENCOUNTER → 2024-01-05 09:54 | Outpatient (BNVA) | payer OTHER, SELFPAY | PROVIDERS: PCP Nurse Practitioner Family; Visit Provider Registered Nurse | DX: H66.001 Acute suppurative otitis media without spontaneous rupture of ear drum, right ear (principal) | CPT/HCPCS: 99212 ==

== ENCOUNTER → 2024-02-04 08:47 | Outpatient (BNV) | payer OTHER, SELFPAY | PROVIDERS: PCP Nurse Practitioner Family; Referring Provider Nurse Practitioner Family; Visit Provider Internal Medicine | DX: D69.6 Thrombocytopenia, unspecified (principal) | CPT/HCPCS: 99204; G2211 ==

== ENCOUNTER 2024-05-26 09:17 | Outpatient (REF) | payer OTHER, SELFPAY ==
--- NOTE | ~2024-05-26 | XR_ITS ---
EXAMINATION: XR ABDOMEN 1 VIEW (KUB) HISTORY: R10.9 - Unspecified abdominal pain COMPARISON: There are no prior studies for comparison. FINDINGS: Two supine views of the abdomen are submitted. The bowel gas pattern is unremarkable, without evidence of mechanical obstruction. No abnormal calcifications are identified. There are no abnormal soft tissue masses. The bones are intact. XR/XR KUB IMPRESSION: Unremarkable bowel gas pattern. Electronically signed by: Flako Molina MD 05/26/2024 10:25 AM EDT
--- OUTSIDE RECORDS SUMMARY | 2024-05-26 11:14 | XMS_ITS | Clinical Summary ---
Author Organization [facility] ity Address [address] [place] [address] Care Team Providers Care Aerial Sprayer Name Role Phone Unavailable Primary Care Provider [...]
== END 2024-05-26 09:18 | disposition home or self-care (01) ==
LOC: HO.HMGCX 09:17
PROVIDERS: PCP Nurse Practitioner Family; Visit Provider Physician Assistant
DX: R10.84 Generalized abdominal pain (principal)
CPT/HCPCS: 74018; 99212

== ENCOUNTER 2024-05-26 09:17 | Outpatient (AMB) | payer OTHER, SELFPAY ==
[2024-05-26 09:22] VITALS: BP 124/80; PULSE 78; O2SAT 98; BMI 25.2
--- NOTE | 2024-05-26 09:22 | AM.OFFWIN_ITS ---
Intake Vital Signs 05/26/24 09:22 Height 5 ft 11 in Weight 181 lb BMI 25.2 BP 124/80 Blood Pressure Location Rt brachial Pulse 78 Pulse Source Pulse Oximeter Pulse Oximetry (%) 98 Oxygen Delivery Method Room Air Intake Visit Reasons: EP Stomach, no appetite/can't eat Intake Note: Patient here for stomach pain, loss of appetite that has been present for a few days and became more intense last night. Patient Tobacco Use Status: Never used Tobacco Allergies No Known Allergies [No Known Allergies*] Allergy (Verified 05/26/24 09:22) Do you need a note to return to daycare/school/sports/work: No HPI HPI Comments History of Present Illness Details History of Present Illness The patient is a 38-year-old male presenting with abdominal pain. - Reports that the pain has been intermi ttent, worsening significantly yesterday, restricting him from eating or drinking. - Chronic constipation has been indicate d, and he has required natural laxatives for relief due to denial of necessary diagnostic tests by insurance. He has taken a natural laxative which produced a significant amount of mushy stool yesterday. Denies bloody or black stools or fevers. Mild improvement in pain today. - The patient has a history of gastroeso phageal reflux disease. Has taken Omeprazole but couldn't tolerate side effects. He switched to a natural remedy, Soothe Powder which he has been taking. - His colonoscopy 11 years earlier was r eported normal, but an upper GI indicated excessive acid. - He is not currently taking prescribed GERD medications due to side effects and has switched to a natural supplement, which he feels has helped with reflux but possibly contributed to constipation. - There is a recurrent history of hemorr hoids, last appearing a couple of weeks ago, managed with OTC treatments and without bleeding. Patient noticed a lump near his anus recently and thinks it could be a hemorrhoid. Physical Exam General: Cooperative, healthy appearing, comfortable, no acute distress and well developed Orientation: Patient oriented x3 Limitations: No limitations Head: Normal to inspection Ears: Hearing grossly normal bilaterally Nose: Normal external nose present Face and sinus: Normal facial exam Eyes: Appearance normal, both eyes and all related structures Neck: Normal visual inspection and Yes full ROM Respiratory: Normal respiratory effort and able to speak in complete sentences. GI: soft, normoactive bs, generalized tenderness to palpation, negative muphy's, negative mcburneys Skin: No rashes or lesions noted Neuro: Patient oriented x3 Extremities: Normal to inspection [facility] Surgical History History of ear surgery Family History Father History of heart attack Heavy smoker CVD (cardiovascular disease) Mother Anemia Social History Housing: Other Alcohol intake: current Alcohol intake frequency: holidays/special occasions only Patient Tobacco Use Status: Never used Tobacco e-Cigarette/Vaping Use: Never Used Second Hand Smoke Exposure: No service: No Current occupational status: employed Current occupation: [employer] Current occupational exposures/hazards: Yes Cognitive needs: No Hearing needs: No Vision needs: No Review of Systems Const All systems reviewed & are unremarkable except as noted in HPI and below Physical Exam Vital Signs: Last Vital Signs Pulse 78 05/26/24 09:22 BP 124/80 05/26/24 09:22 Pulse Ox 98 05/26/24 09:22 Oxygen Delivery Method Room Air 05/26/24 09:22 BMI result Body Mass Index 25.2 Assessment & Plan Assessment & Plan (1) Abdominal pain: Code(s): R10.9 - Unspecified abdominal pain Qualifiers: Abdominal location: generalized Qualified Code(s): R10.84 - Generalized abdominal pain Plan: VSS, pt well appearing and PE unremarkable. The management plan focused on addressing the abdominal pain and constipation, including eliminating dietary supplements to evaluate their role in symptom manifestation.The supplement he has been taking for GERD, Soothe Powder, side effects indicate constipation. Recommendations were made for dietary adjustments to increase natural fiber intake and adequate hydration to help alleviate constipation. Although advanced imaging study consideration, like a CT scan, was obstructed by insurance issues, emphasizing the importance of dietary adjustments may offer symptom assessment clarity in this scenario. We will get a KUB to confirm constipation. Patient states he has difficulty treating his constipation because he states MiraLax does not work for him and Dulcolax causes significant abdominal pain. Gastroesophageal reflux disease management included consideration of side effects associated with omeprazole, and the patient is advised to continue monitoring symptoms following his switch to natural supplements. Emphasis is placed on hemorrhoid care should future episodes occur, recommending prompt consultation for significant exacerbations of symptoms. Previous hemorrhoid interventions are acknowledged, dictating vigilance in current management discussions. Patient was given red flag warning signs and when to go to the emergency department for his abdominal pain. These include significantly increasing abdominal pain, fevers, bloody or black stools. Patient was informed and verbally consented to the use of an ambient scribe for clinic note documentation during this visit. Orders: Orders XR KUB Today R10.9 - Unspecified abdominal pain Coding Level of Care Code Est Pt Level 4 (58294) Diagnoses Generalized abdominal pain R10.84 Abdominal location: generalized
--- OUTSIDE RECORDS SUMMARY | 2024-05-26 10:07 | XMS_ITS | Clinical Summary ---
Author Organization [facility] ity Address [address] [place] [address] Care Team Providers Care Hebrew Teacher Name Role Phone Unavailable Primary Care Provider Unavailabl e Social History Tobacco Use Types Packs/Day Years Used Date Smoking Tobacco: Never Assessed Sex and Gender Information Value Date Recorded Sex Assigned at Not on file Legal Sex Male 4:58 AM EST Gender Identity Not on file Sexual Orientation Not on file Plan of Treatment Health Maintenance Due Date Last Done Comments DTaP,Tdap,and Td Vaccines (1 - Tdap) 08/09/2002 Hepatitis B Vaccines (1 of 3 - 19+ 3-dose series) 08/09/2002 COVID-19 Vaccine (2023-2 5 season) 2023 Influenza Vaccine (#1) 2023 HIB Vaccines Aged Out No longer eligi ble based on patient's age to complete this topic HPV Vaccines Aged Out No longer eligi ble based on patient's age to complete this topic Hepatitis A Vaccines Aged Out No long er eligible based on patient's age to complete this topic IPV Vaccines Aged Out No longer eligi ble based on patient's age to complete this topic MMR Vaccines Aged Out No longer eligi ble based on patient's age to complete this topic Meningococcal ACWY Vaccine Aged Out N o longer eligible based on patient's age to complete this topic Meningococcal B Vacine Aged Out No lo nger eligible based on patient's age to complete this topic Pneumococcal Vaccine: Pediat rics (0 to 5 Years) and At-Risk Patients (6 to 64 Years) Aged Out No longer eligible b ased on patient's age to complete this topic RSV Immunization Patients Un yessenia 20 months Aged Out No longer eligible b ased on patient's age to complete this topic Varicella Vaccines Aged Out No longer eligible based on patient's age to complete this topic
== END 2024-05-26 10:42 | disposition home or self-care (01) ==
PROVIDERS: PCP Nurse Practitioner Family; Visit Provider Physician Assistant
DX: R10.84 Generalized abdominal pain (principal)

== ENCOUNTER → 2024-05-26 10:06 | Outpatient (BNV) | payer OTHER, SELFPAY | PROVIDERS: PCP Nurse Practitioner Family; Visit Provider Radiology Diagnostic Radiology | DX: R10.9 Unspecified abdominal pain (principal) | CPT/HCPCS: 74018 ==

== ENCOUNTER 2024-06-09 07:45 | Outpatient (REF) | payer OTHER, SELFPAY ==
--- NOTE | ~2024-06-09 | CT_ITS ---
EXAMINATION: CT ABDOMEN AND PELVIS WITH CONTRAST CLINICAL INFORMATION: Family history of pancreatic cancer. Abdominal pain. COMPARISON: March 31, 2021. TECHNIQUE: Multidetector volumetric images were obtained from the superior aspect of the liver through the pubic symphysis following administration 85 mL of Omnipaque 350 intravenous contrast. Sagittal and coronal reformatted images were obtained on the technologist's workstation. Oral contrast: No This CT examination was performed using dose optimization techniques as appropriate, variously including the following: *Automated exposure control *Adjustment of mA and/or kV according to patient size (this includes techniques or standardized protocols for targeted exams where dose is matched to indication/reason for exam; i.e. extremities or head) *Use of iterative reconstruction technique DLP: 332 mGy centimeter FINDINGS: LUNG BASES: No acute airspace disease or gross pulmonary nodules. LIVER, GALLBLADDER, AND BILIARY TREE: Liver measures 16 cm. No focal mass. Portal veins, hepatic veins and intrahepatic portion of the IVC are patent. No pericholecystic fluid collection or gallbladder wall thickening. No intrahepatic or extrahepatic biliary ductal dilatation. PANCREAS: No focal lesion. No main pancreatic ductal dilatation. No peripancreatic fluid collection. SPLEEN: 11 cm. No focal lesion. ADRENAL GLANDS: No nodular lesions. KIDNEYS AND URETERS: No hydronephrosis. No nephrolithiasis. BLADDER: Fluid-filled. GASTROINTESTINAL TRACT: Abundant stool. No intestinal obstruction pattern. No ascites. No pneumatosis intestinalis. No pneumoperitoneum. Appendix is normal. ABDOMINAL WALL: Small fat-containing umbilical hernia. LYMPH NODES: Nonspecific prominent lymph nodes, mesenteric and retroperitoneum. VASCULAR: No aneurysm or dissection, abdominal aorta PELVIC VISCERA: Nonenlarged prostate gland. OSSEOUS STRUCTURES: No acute fracture or listhesis. Spina bifida occulta, S1-S3. Sclerosis and the sacroiliac joints. CT/CT abdomen pelvis w IV con IMPRESSION: No pancreatic mass. Mild hepatomegaly. Small fat-containing umbilical hernia. Fleischner guidelines were followed. Electronically signed by: Kimani Castro MD 06/09/2024 10:51 AM EDT
[2024-06-09] MEDS: Barium Sulfate Oral (Mocha) 450 ML ORAL.SUSP 900 ML PO (10:17)
[2024-06-09] MEDS: iohexoL 350 MG/ML 75 ML INFUS..BTL 85 ML IV (10:17)
== END 2024-06-09 07:46 | disposition home or self-care (01) ==
LOC: HO.CT 07:45
PROVIDERS: PCP Nurse Practitioner Family; Visit Provider Nurse Practitioner Family
DX: R10.84 Generalized abdominal pain (principal); Z80.0 Family history of malignant neoplasm of digestive organs
CPT/HCPCS: 74177; Q9967

== ENCOUNTER → 2024-06-09 07:48 | Outpatient (BNV) | payer OTHER, SELFPAY | PROVIDERS: PCP Nurse Practitioner Family; Visit Provider Radiology Diagnostic Radiology | DX: R10.9 Unspecified abdominal pain (principal) | CPT/HCPCS: 74177 ==

== ENCOUNTER 2024-11-07 08:47 | Outpatient (AMB) | payer OTHER, SELFPAY ==
--- NOTE | 2024-11-07 08:53 | AM.OFFWIN_ITS ---
Intake Vital Signs 11/07/24 08:54 Height 5 ft 11 in Weight 186 lb BMI 25.9 BP 130/72 Blood Pressure Location Lt brachial Position Sitting Pulse 62 Pulse Source Pulse Oximeter Temp 97.7 F Temp Source Oral Pulse Oximetry (%) 97 Oxygen Delivery Method Room Air Intake Visit Reasons: EP Blister ripped open, shooting pain up arm Intake Note: pt presents with open wound to left hand, experiencing shooting pains up arm- has been applying Patient Tobacco Use Status: Never used Tobacco Allergies No Known Allergies (No Known Allergies*) Allergy (Verified 11/07/24 08:55) Do you need a note to return to daycare/school/sports/work: No HPI HPI Comments History of Present Illness Details History of Present Illness - The patient is a 39-year-old male pres enting with a blister on the hand and associated pain radiating up the arm. - The blister developed while working wi th a [employer] to remove a tree stump, which caused vibration and friction on the hand. - Initially, the blister was red and inf lamed, but there were no signs of infection such as pus or redness extending beyond the blister. - He has been having a burning sensation up the arm on the left. - The patient applied A&D ointment as a barrier, although it was not intended for infection prevention. - The patient reported clear fluid drain age from the blister. - He denies discharge, bleeding, fever, chills, or streaking. Physical Exam General: Cooperative, healthy appearing, comfortable, no acute distress and well developed Orientation: Patient oriented x3 Respiratory: Normal respiratory effort and able to speak in complete sentences. Clear to auscultation bilaterally Cardiovascular: Regular rate and rhythm. Normal S1 and S2 Skin: Blisters noted on the left hand on the palmar aspect at the base of the 2nd digit. Open, dry, no erythema noted. No streaking or warmth noted. Neuro: Sensation intact Extremities: Normal to inspection. FROM of the left wrist. Hand pathology tech is intact. Patient was informed and verbally consented to the use of an ambient scribe for clinic note documentation during this visit. [facility] Surgical History History of ear surgery Family History Father History of heart attack Heavy smoker CVD (cardiovascular disease) Mother Anemia Social History Housing: Other Alcohol intake: current Alcohol intake frequency: holidays/special occasions only Patient Tobacco Use Status: Never used Tobacco e-Cigarette/Vaping Use: Never Used Second Hand Smoke Exposure: No service: No Current occupational status: employed Current occupation: [employer] Current occupational exposures/hazards: Yes Cognitive needs: No Hearing needs: No Vision needs: No Review of Systems Const All systems reviewed & are unremarkable except as noted in HPI and below Physical Exam Vital Signs: Last Vital Signs Temp 97.7 F 11/07/24 08:54 Pulse 62 11/07/24 08:54 BP 130/72 11/07/24 08:54 Pulse Ox 97 11/07/24 08:54 Oxygen Delivery Method Room Air 11/07/24 08:54 BMI result Body Mass Index 25.9 Assessment & Plan Assessment & Plan (1) Blister: Code(s): T14.8XXA - Other injury of unspecified body region, initial encounter Plan Most likely blister Plan - A prescription for an antibiotic was provided to aid in faster healing - The patient was advised to keep the blister clean and covered to promote healing. - watch for signs of infection - follow up with PCP Medications: New 2 mupirocin 2% 1 appl topical TID 22 grams 0RF Coding Level of Care Code Est Pt Level 3 (96457) Diagnoses Blister T14.8XXA
[2024-11-07 08:54] VITALS: BP 130/72; PULSE 62; TEMP 36.5; O2SAT 97; BMI 25.9
--- OUTSIDE RECORDS SUMMARY | 2024-11-07 09:04 | XMS_ITS | Clinical Summary ---
Author Organization [facility] it Address [address] [place] [address] Care Team Providers Care Health And Wellness Manager Name Role Phone Unavailable Primary Care Provider [...] - 19+ 3-dose series) 08/09/2002 COVID-19 Vaccine ( - 2023-2 5 season) 2023 Depression Screening 03/15/2024 Influenza Vaccine (#1) 2024 HIB Vaccines Aged Out No longer eligi [...] age to complete this topic Meningococcal B Vaccine Aged Out No l onger eligible based on patient's age to complete this topic Pneumococcal Vaccine: Pediat rics (0 to 5 Years) and At-Risk Patients (6 to 49 Years) Aged Out No longer eligible b ased on patient's age to complete this topic RSV Immunization Patients Un yessenia 20 months Aged Out No longer eligible b ased on patient's age to complete this topic Varicella Vaccines Aged Out No longer eligible based on patient's age to complete this topic
== END 2024-11-07 09:59 | disposition home or self-care (01) ==
PROVIDERS: PCP Nurse Practitioner Family; Visit Provider Physician Assistant Medical
DX: S60.522A Blister (nonthermal) of left hand, initial encounter (principal); T14.8XXA Other injury of unspecified body region, initial encounter

== ENCOUNTER → 2024-11-07 08:47 | Outpatient (BNVA) | payer OTHER, SELFPAY | PROVIDERS: PCP Nurse Practitioner Family; Visit Provider Physician Assistant Medical | DX: S60.522A Blister (nonthermal) of left hand, initial encounter (principal); X58.XXXA Exposure to other specified factors, initial encounter; Y93.9 Activity, unspecified; Y92.9 Unspecified place or not applicable; Y99.9 Unspecified external cause status | CPT/HCPCS: 99212 ==

== ENCOUNTER 2025-02-09 10:31 | Outpatient (REF) | payer OTHER, SELFPAY ==
--- OUTSIDE RECORDS SUMMARY | 2025-02-09 10:34 | XMS_ITS | Clinical Summary ---
Author Organization Patient Business [facility] Address [address] [place] [phone] Care Team Providers Care Manager Rehab Name Role Phone Unavailable Primary Care Provider [...] of 3 - 19+ 3-dose series) 08/09/2002 HPV Vaccines (1 - 3-dose SCD M series) 08/09/2010 Depression Screening 03/15/2024 COVID-19 Vaccine (1 - 2024-2 6 season) 2024 Influenza Vaccine (#1) 2024 RSV Immunization Adult Patie nts (1 - 1-dose 75+ series) 08/09/2058 HIB Vaccines Aged Out No longer eligi [...]
[2025-02-09 12:40] LABS: MANUAL DIFF FLAG NO
[2025-02-09 12:46] LABS: Hematocrit 44.8 % (42.0-52.0); Hemoglobin 15.7 g/dl (14.0-18.0); Imm Gran Abs Auto 0.02 X10*3/uL (0.00-0.03); Imm Gran Pct Auto 0.5 % (0.0-0.4); Lymphocytes Absolute Auto 1.5 X10*3/uL (1.2-4.9); Mean Corpuscular HGB Conc 35.0 g/dl (31.0-36.0); Mean Corpuscular Hemoglobin 29.4 pg (27.0-33.0); Mean Corpuscular Volume 83.9 fL (80.0-98.0); NRBC Abs Auto 0.000 X10*3/uL (0.0-0.012); NRBC Pct Auto 0.0 /100WBC (0.0-0.2); Platelet Count 129 X10*3/uL (160-400); Red Blood Count 5.34 X10*6/uL (4.60-5.80); White Blood Count 3.7 X10*3/uL (4.8-10.8)
[2025-02-09 12:47] LABS: Appearance Urine Cloudy; Glucose Urine UA Negative (Negative); PH 8.5 (5.0-9.0); Specific Gravity - Urine 1.020 (1.005-1.025)
[2025-02-09 13:15] LABS: Alanine Aminotransferase 19 U/L (0-40); Albumin Level 4.6 g/dL (3.5-5.0); Alkaline Phosphatase 69 U/L (39-117); Anion Gap 11 (12-20); Aspartate Amino Transferase 24 U/L (5-37); Blood Urea Nitrogen 16 mg/dL (9-16); Calcium 9.0 mg/dL (8.4-10.2); Carbon Dioxide 30 mmol/L (22-29); Chloride 106 mmol/L (96-108); Cholesterol 150 mg/dL (<200); Estimated Glomerular Filt Rate > 60; HDL Cholesterol 47 mg/dL (>40); Potassium 3.8 mmol/L (3.3-5.1); Sodium 143 mmol/L (135-145); Total Protein 6.4 g/dL (6.5-8.0); Triglycerides 53 mg/dL (<150)
== END 2025-02-09 10:32 | disposition home or self-care (01) ==
LOC: HO.HMGCLDS 10:31
PROVIDERS: PCP Nurse Practitioner Family; Visit Provider Nurse Practitioner Family
DX: Z00.00 Encounter for general adult medical examination without abnormal findings (principal)
CPT/HCPCS: 36415; 80053; 80061; 81003; 84443; 85025

== ENCOUNTER 2025-02-13 08:32 | Outpatient (AMB) | payer OTHER, SELFPAY ==
--- OUTSIDE RECORDS SUMMARY | 2025-02-13 08:38 | XMS_ITS | Clinical Summary ---
Author Organization Patient Business [facility] Address [address] [place] [phone] Care Team Providers Care Yeast Washer Name Role Phone Unavailable Primary Care Provider [...]
--- NOTE | 2025-02-13 08:57 | MHC.PC.OV ---
Vital Signs 02/13/25 08:58 Height 5 ft 11 in Weight 190 lb BMI 26.5 BP 120/68 Blood Pressure Location Lt brachial Position Sitting Respiration 16 Pulse 69 Pulse Source Pulse Oximeter Pulse Oximetry (%) 97 Oxygen Delivery Method Room Air Intake Visit Reasons: annual Supervisor Powdered Sugar Required: No Accompanied by: Self / Same As Patient Allergies No Known Allergies (No Known Allergies*) Allergy (Verified 02/13/25 08:58) Medication List - Last Reconciled 02/13/25 by JADIEL Montalvo clotrimazole-betamethasone 1-0.05 % 1 appl topical BID 4 weeks cyanocobalamin (vitamin B-12) (Vitamin B-12) 1 tab PO DAILY mupirocin 2% 1 appl topical TID Tobacco use date assessed: 02/13/25 Dental Screening Dental Screen Date: 02/13/25 Did you have a dental visit in the last 12 months?: Yes Did you have a dental problem in the last 6 months where you did not have access to dental care?: No Was dental information given to patient?: Patient has dentist HPI annual HPI Details Chief Complaint The patient presents for a physical examination. History of Present Illness The patient is a 39 year old individual presenting for a physical examination. The patient has a history of thrombocytopenia and leukopenia, for which hematology has been consulted in the past. The patient reports feeling quite well. Recent lab work was done, at which time the patient was a little dehydrated, and results showed trace protein in the urine. Social History Health Maintenance The patient presented for a physical examination which was benign. Recent labs showed trace proteinuria, likely related to dehydration. The patient was counseled to stay well-hydrated, especially when fasting for future lab tests, and to follow up in one year. Review of Systems - General: Reports feeling well. - Cardiovascular: Denies chest pain. - Respiratory: Denies shortness of breath. - Gastrointestinal: Denies abdominal pain, blood in stool, constipation, or diarrhea. - Psychiatric: Denies suicidal or homicidal ideation. Physical Exam General: Cooperative, healthy appearing, comfortable, no acute distress and well developed Orientation: Patient oriented x3 Limitations: No limitations Head: Normal to inspection Ears: Hearing grossly normal bilaterally Nose: Normal external nose present Face and sinus: Normal facial exam Eyes: Appearance normal, both eyes and all related structures Neck: Normal visual inspection and Yes full ROM Respiratory: Normal respiratory effort and able to speak in complete sentences. Clear to auscultation bilaterally Cardiovascular: Regular rate and rhythm. Normal S1 and S2 GI: Normal to inspection. Soft to palpation and nontender Skin: No rashes or lesions noted Neuro: Patient oriented x3 Extremities: Normal to inspection Results - Labs: Recent labs revealed thrombocytopenia, leukopenia, and trace proteinuria. Plan 1. Thrombocytopenia And Leukopenia The patient has a known history of thrombocytopenia and leukopenia, previously evaluated by hematology. As the patient is feeling well, the plan is to continue monitoring with a follow-up in one year. 2. physical exam Discussion Notes I discussed the recent lab results with the patient, noting the trace protein was likely due to dehydration. I advised the patient that drinking plenty of water is permissible and recommended when fasting for future lab work. I informed the patient that the physical exam was completely benign and recommended a follow-up visit in one year. Patient Instructions - For future lab tests that require fasting, you can and should drink plenty of water. - Please schedule a follow-up appointment in one year. 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 1. Little interest or pleasure in doing things: not at all 2. Feeling down, depressed, or hopeless: not at all 3. Trouble falling or staying asleep, or sleeping too much: several days 4. Feeling tired or having little energy: several days 5. Poor appetite or overeating: not at all 6. Feeling bad about yourself - or that you are a failure or have let yourself or your family down: not at all 7. Trouble concentrating on things, such as reading the newspaper or watching television: not at all 8. Moving or speaking so slowly that other people could have noticed. Or the opposite - being so fidgety or restless that you have been moving around a lot more than usual: not at all 9. Thoughts that you would be better off or of hurting yourself in some way: not at all Total score: 2 Depression Screening Interpretation: Negative Depression Screening Done: Yes [id number] - PHQ-9 Billing: Yes Source: Developed by Drs. Flako Francois, Kirsten Ramirez, Jay Kelly and colleagues, with an educational lobito from [employer]. Thrive Questionnaire Date Thrive assessed: 12/29/23 I am a: Patient What is your living situation today?: I have a steady place to live Within the past 12 months, did the food you bought not last and you didn't have the money to get more?: Never true Within the past 12 months, did you worry whether your food would run out before you got money to buy more?: Never true Do you have trouble paying for medicines?: No Do you have trouble getting transportation to medical appointments?: No Do you have trouble paying your heating and electricity bill?: No Do you have trouble taking care of your child, family member or friend?: No Do you have trouble with day-to-day activities such as bathing, preparing meals, shopping, managing finances, etc.?: No Are you currently unemployed and looking for a job?: No Are you interested in more education?: No Please select the resources that you would like help with: None Currently or been in a relationship where the following occur: No concerns reported THRIVE Score: 0 AUDIT C Alcohol Use Questionnaire (AUDIT-C) 1. How often do you have a drink containing alcohol?: Never Total Score: 0 Score Reviewed/Action Taken: Yes ARPAN-7 AMB Questionnaire ARPAN-7 Date ARPAN - 7 assessed: 02/13/25 Feeling nervous, anxious, or on edge: 1 = Several days Not being able to stop or control worryin = Not at all Worrying too much about different things: 0 = Not at all Trouble relaxin = Several days Being so restless that it is hard to sit still: 1 = Several days Becoming easily annoyed or irritable: 1 = Several days Feeling afraid as if something awful might happen: 0 = Not at all Total ARPAN-7 score (0-4 normal; 5-9 mild; 10-14 moderate; 15-21 severe): 4 Source: Developed by Drs. Flako Francois, Kirsten Ramirez, Jay Kelly and colleagues, with an educational lobito from [employer]. ARPAN-7 Assessment Billing ARPAN-7 Assessment Tool: ARPAN-7 Assessment 72412 Physical exam (Primary Care) Vital Signs: Last Vital Signs Pulse 69 02/13/25 08:58 Resp 16 02/13/25 08:58 BP 120/68 02/13/25 08:58 Pulse Ox 97 02/13/25 08:58 Oxygen Delivery Method Room Air 02/13/25 08:58 BMI result Body Mass Index 26.5 Tobacco/Smoking Status: Tobacco use Status Tobacco use date assessed 02/13/25 02/13/25 09:03 Patient Tobacco Use Status Never used Tobacco 02/13/25 09:03 e-Cigarette/Vaping Use Never Used 02/13/25 09:03 PHQ-9: PHQ-9 Score PHQ-9: Total score 2 02/13/25 09:03 Depression Screening Interpretation: Negative Thrive Assessment: Date of Thrive Assessment Date Thrive assessed 12/29/23 02/13/25 09:03 Currently or been in a relationship where the following occur: No concerns reported Coding Level of Care Code Est Pt Prev Care 40-64y(43890) Diagnoses Physical exam Z00.00 Additional Codes ARPAN-7 Assessment Billing - ARPAN-7 Assessment Tool: ARPAN-7 Assessment 71599 ([id number]) PHQ-9 - 80051 - PHQ-9 Billing: Yes ([id number]) Assessment & Plan Assessment & Plan (1) Physical exam: Code(s): Z00.00 - Encounter for general adult medical examination without abnormal findings Category: Medical Plan . Orders: Orders Complete Blood Count Auto Diff Today Z00.00 - Encounter for general adult medical examination without abnormal findings UA CC w/rflx Micro + Cult Today Z00.00 - Encounter for general adult medical examination without abnormal findings Comprehensive [place]. Panel Fast Today Z00.00 - Encounter for general adult medical examination without abnormal findings TSH reflex Free T4 Today Z00.00 - Encounter for general adult medical examination without abnormal findings Lipid Panel Today Z00.00 - Encounter for general adult medical examination without abnormal findings Medications: New clotrimazole-betamethasone 1-0.05 % 1 appl topical BID 45 grams 0RF 4 weeks
[2025-02-13 08:58] VITALS: BP 120/68; PULSE 69; RESP 16; O2SAT 97; BMI 26.5
== END 2025-02-13 09:39 | disposition home or self-care (01) ==
LOC: HO.HMCC 08:33
PROVIDERS: PCP Nurse Practitioner Family; Visit Provider Nurse Practitioner Family
DX: Z00.00 Encounter for general adult medical examination without abnormal findings (principal)

== ENCOUNTER → 2025-02-13 08:32 | Outpatient (BNVA) | payer OTHER, SELFPAY | PROVIDERS: PCP Nurse Practitioner Family; Visit Provider Nurse Practitioner Family | DX: Z00.00 Encounter for general adult medical examination without abnormal findings (principal) | CPT/HCPCS: 96127; 99396 ==